=== PATIENT | female | born 1980 | race Caucasian/White ===

== ENCOUNTER 2019-07-03 12:43 | Outpatient (CLI) | payer BC ==
[2019-07-03 13:00] LABS: BASOPHILS % (AUTO) 0.8 %; EOSINOPHILS # (AUTO) 0.1 10^3/uL (0.0-0.7); EOSINOPHILS % (AUTO) 1.5 %; HGB - HEMOGLOBIN 13.9 g/dL (12.0-16.0); LYMPHOCYTES # (AUTO) 1.6 10^3/uL (1.5-3.5); LYMPHOCYTES % (AUTO) 42.3 %; MEAN CORPUSCULAR HEMOGLOBIN 31.9 pg (27.0-31.0); MEAN CORPUSCULAR HGB CONC 34.6 g/dL (32.0-36.0); MEAN CORPUSCULAR VOLUME 92.2 fL (81.0-99.0); MONOCYTES # (AUTO) 0.4 10^3/uL (0.0-1.0); NEUTROPHILS # (AUTO) 1.8 10^3/uL (1.5-6.6); NEUTROPHILS % (AUTO) 46.1 %; PLT - PLATELET COUNT 211 10^3/uL (130-450); RED BLOOD COUNT 4.36 10^6/uL (4.20-5.40); RED CELL DISTRIBUTION WIDTH 11.9 % (12.0-15.0); WHITE BLOOD COUNT 3.9 x10^3/uL (4.8-10.8)
[2019-07-03 14:02] LABS: THYROID STIMULATING HORMONE 3.97 uIU/mL (0.34-5.60)
[2019-07-03 14:05] LABS: FREE T4 (FREE THYROXINE) 0.83 ng/dL (0.58-1.64)
== END 2019-07-03 12:44 | disposition home or self-care (01) ==
LOC: LAB 12:43
PROVIDERS: ATTEND Family Medicine
DX: N92.1 Excessive and frequent menstruation with irregular cycle (principal)
CPT/HCPCS: 36415; 84439; 84443; 84481; 85025

== ENCOUNTER 2022-04-02 11:06 | Outpatient (CLI) | payer OTHER | END 2022-04-02 11:07 | disposition critical access hospital (66) | LOC: EMS 11:06 | DX: R55 Syncope and collapse (principal); R22.0 Localized swelling, mass and lump, head; W18.39XA Other fall on same level, initial encounter; Y92.512 Supermarket, store or market as the place of occurrence of the external cause; M25.522 Pain in left elbow | CPT/HCPCS: A0425; A0427 ==

== ENCOUNTER 2022-04-02 11:24 | Emergency (ER) | payer BC, OTHER ==
[2022-04-02] MEDS ORDERED: IBUPROFEN 800 MG TABLET PO STA (11:32)
--- NOTE | 2022-04-02 11:34 | ED Physician Documentation ---
PD HPI SYNCOPE - Stated complaint Stated Complaint: SEIZURE - Chief complaint Chief Complaint: Neuro - History obtained from History obtained from: Patient, EMS - Additional information Additional information: Previously healthy woman has been under a lot of stress lately. She was at the grocery store today in her usual state of health and hit her elbow hard and then passed out. She hit the back of her head on the floor on the way down. Sounds like she was not out for very long and there may have been some shaking but no clear seizure activity. Her elbow still hurts and now she has a significant headache from hitting her head with loss of consciousness and a fall greater than 3 feet. Review of Systems Ten Systems: 10 systems reviewed and negative Cardiac: denies: Chest pain / pressure, Palpitations Respiratory: denies: Dyspnea, Cough GI: denies: Abdominal Pain, Nausea, Vomiting Neurologic: reports: Headache, Head injury PD PAST MEDICAL HISTORY - Present Medications Home Medications: Ambulatory Orders Medication Instructions Recorded Confirmed No Known Home Medications 04/02/22 04/02/22 - Allergies Allergies/Adverse Reactions: Allergies Allergy/AdvReac Type Severity Reaction Status Date / Time amoxicillin Allergy Hives Verified 04/02/22 11:30 PD ED PE NORMAL - Vitals Vital signs reviewed: Yes - General General: Alert and oriented X 3 - HEENT HEENT: PERRL, EOMI, Other (Palpable hematoma on the left occiput) - Neck Neck: Supple, no meningeal sign, No bony TTP - Cardiac Cardiac: RRR, No murmur - Respiratory Respiratory: No respiratory distress, Clear bilaterally - Abdomen Abdomen: Normal bowel sounds, Soft, Non tender - Back Back: No CVA TTP, No spinal TTP - Derm Derm: Normal color, Warm and dry - Extremities Extremities: Other (L jay NTTP/FROM) - Neuro Neuro: Alert and oriented X 3, 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 No: Prolonged QT QRS: Normal Ischemia: Non specific changes. No: ST elevation c/w ischemia, ST depression - Labs Labs: Laboratory Tests 04/02/22 04/02/22 04/02/22 12:02 12:02 12:47 WBC 4.3 L RBC 4.57 Hgb 14.2 Hct 42.7 MCV 93.4 MCH 31.1 H MCHC 33.3 RDW 12.5 Plt Count 200 MPV 9.5 Neut # (Auto) 2.5 Lymph # (Auto) 1.4 L [place] # (Auto) 0.4 Eos # (Auto) 0.1 Baso # (Auto) 0.0 Absolute Nucleated RBC 0.00 Nucleated RBC % 0.0 Sodium 137 Potassium 4.0 Chloride 101 Carbon Dioxide 25 Anion Gap 11.0 BUN 14 Creatinine 0.9 Estimated GFR (MDRD) 69 L Glucose 138 H Calcium 9.2 Urine Color YELLOW Urine Clarity HAZY Urine pH 6.0 Ur Specific [place] 1.020 Urine Protein NEGATIVE Urine Glucose (UA) NEGATIVE Urine Ketones NEGATIVE Urine Occult Blood SMALL H Urine Nitrite NEGATIVE Urine Bilirubin NEGATIVE Urine Urobilinogen 0.2 (NORMAL) Ur Leukocyte Esterase NEGATIVE Ur Microscopic Review INDICATED Urine Culture Comments Not Reportable Urine HCG, Qual NEGATIVE - Rads (name of study) Ct Head Radiology: EMP read contemporaneously (Left parietal scalp hematoma without intracranial injury) PD MEDICAL DECISION MAKING - ED course ED course: 41-year-old woman with what sounds like vasovagal syncope related to painful stimulus, elbow injury. Departure - Departure Disposition: 01 Home, Self Care Clinical Impression: Vasovagal syncope Condition: Good Instructions: ED Syncope Vasovagal Comments: As discussed, the combination of a syncopal episode right after very painful stimulus and is most consistent with vasovagal syncope. Take it easy for the rest of the day and follow-up with your primary care physician next available appointment. Return for new or worsening symptoms.
[2022-04-02 12:06] LABS: BASOPHILS % (AUTO) 0.7 %; EOSINOPHILS # (AUTO) 0.1 10^3/uL (0.0-0.7); EOSINOPHILS % (AUTO) 1.4 %; HCT - HEMATOCRIT 42.7 % (37.0-47.0); HGB - HEMOGLOBIN 14.2 g/dL (12.0-16.0); LYMPHOCYTES # (AUTO) 1.4 10^3/uL (1.5-3.5); LYMPHOCYTES % (AUTO) 31.6 %; MEAN CORPUSCULAR HEMOGLOBIN 31.1 pg (27.0-31.0); MEAN CORPUSCULAR HGB CONC 33.3 g/dL (32.0-36.0); MEAN CORPUSCULAR VOLUME 93.4 fL (81.0-99.0); MEAN PLATELET VOLUME 9.5 fL (7.9-10.8); MONOCYTES # (AUTO) 0.4 10^3/uL (0.0-1.0); MONOCYTES % (AUTO) 8.7 %; NEUTROPHILS # (AUTO) 2.5 10^3/uL (1.5-6.6); NEUTROPHILS % (AUTO) 57.4 %; PLT - PLATELET COUNT 200 10^3/uL (130-450); RED BLOOD COUNT 4.57 10^6/uL (4.20-5.40); RED CELL DISTRIBUTION WIDTH 12.5 % (12.0-15.0); WHITE BLOOD COUNT 4.3 x10^3/uL (4.8-10.8)
[2022-04-02 12:11] VITALS: BP 162/104
[2022-04-02 12:16] LABS: CALCIUM 9.2 mg/dL (8.5-10.3); CREATININE 0.9 mg/dL (0.4-1.0)
--- NOTE | 2022-04-02 12:19 | CT Report ---
PROCEDURE: CT brain without contrast INDICATIONS: head injury TECHNIQUE: Noncontrast 4.5 mm thick angled axial sections acquired from the foramen magnum to the vertex. For r adiation dose reduction, the following was used: automated exposure control, adjustment of mA and/or kV according to patient size. COMPARISON: None. FINDINGS: Image quality: Excellent. CSF spaces: Basal cisterns are patent. No extra-axial fluid collections. Ventricles are normal in size and shape. Brain: No midline shift. No intracranial masses or hemorrhage. Cassidy-white matter interface is norm al. Skull and face: Calvarium and visualized facial bones are intact, without suspicious lesions. Left parietal scalp hematoma noted Sinuses: Visualized sinuses and mastoids are clear. IMPRESSION: Left parietal scalp hematoma without underlying skull fracture or intracranial hemorrhage Reviewed by: Kieran Ayala MD on 04/02/2022 11:18 AM CUATE Approved by: Kieran Ayala MD on 04/02/2022 11:18 AM CUATE Station ID: [id number]
[2022-04-02 13:12] LABS: BILIRUBIN,URINE NEGATIVE (NEGATIVE); GLUCOSE, URINE (UA) NEGATIVE (NEGATIVE); KETONES,URINE (UA) NEGATIVE (NEGATIVE); LEUKOCYTE ESTERASE, URINE NEGATIVE (NEGATIVE); NITRITE,URINE NEGATIVE (NEGATIVE); OCCULT BLOOD,URINE SMALL (NEGATIVE); PROTEIN,URINE NEGATIVE (NEGATIVE); UROBILINOGEN,URINE 0.2 (NORMAL) E.U./dL (NORMAL)
[2022-04-02 13:17] LABS: CLARITY,URINE HAZY (CLEAR); HCG UR QUAL NEGATIVE
[2022-04-02 13:23] LABS: BACTERIA,URINE Many /HPF (None Seen); RBC,URINE 0-5 /HPF (0-5); SQUAMOUS EPITHELIAL CELL,UR MANY Squamous (<= Few); WBC,URINE 0-3 /HPF (0-5)
[2022-04-02 13:24] LABS: MUCUS,URINE Marked Strands
== END 2022-04-02 13:33 | disposition home or self-care (01) ==
LOC: EDUNIT# → ED 11:24
DX: R55 Syncope and collapse (principal)
CPT/HCPCS: 36415; 70450; 80048; 81001; 81025; 85025; 93005; 99284; A9270; 81003; 87086

== ENCOUNTER 2022-04-25 08:00 | Outpatient (CLI) | payer OTHER ==
[2022-04-25 23:11] LABS: BACTERIAL VAGINOSIS DNA NEGATIVE (NEGATIVE); CANDIDA GLABRATA DNA NEGATIVE (NEGATIVE); CANDIDA GROUP DNA NEGATIVE (NEGATIVE); CANDIDA KRUSEI DNA NEGATIVE (NEGATIVE); TRICHOMONAS VAGINALIS DNA NEGATIVE (NEGATIVE)
[2022-04-26 00:07] LABS: CHLAMYDIA TRACHOMATIS DNA NEGATIVE (NEGATIVE); NEISSERIA GONORRHOEAE DNA NEGATIVE (NEGATIVE)
== END 2022-04-25 23:59 | disposition home or self-care (01) ==
LOC: LAB.N 08:00
PROVIDERS: ATTEND Physician Assistant Medical
DX: N76.0 Acute vaginitis (principal)
CPT/HCPCS: 81514; 87491; 87591; 87661

== ENCOUNTER 2022-06-13 09:19 | Outpatient (CLI) | payer OTHER | END 2022-06-13 09:20 | disposition home or self-care (01) | LOC: DI 09:19 | PROVIDERS: ATTEND Physician Assistant | DX: R01.1 Cardiac murmur, unspecified (principal); R55 Syncope and collapse | CPT/HCPCS: 93306 ==

== ENCOUNTER 2023-05-26 10:02 | Emergency (ER) | payer OTHER ==
--- NOTE | 2023-05-26 10:24 | ED Physician Documentation ---
PD HPI LOWER EXT INJURY - Stated complaint Stated Complaint: LT ARM/LEG PX - Chief complaint Chief Complaint: General - History obtained from History obtained from: Patient - History of Present Illness PD HPI LOW EXT INJURY LOCATION: Left, Calf, Other (has had some pain left upper calf without edema nor swelling. Had some left biceps area pain as welll on ROM for 2-3 days. Had been working out upper body and thinks might have strained it.) Type of injury: No: Fall, Twist Timing - onset: How many days ago (2) Timing - details: Gradual onset, Still present, Waxing and waning Worsened by: Moving. No: Palpating Associated symptoms: No: Weakness, Numbness, Swelling Similar symptoms before: Has not had sx before Review of Systems Constitutional: denies: Fever, Chills Nose: denies: Rhinorrhea / runny nose, Congestion Throat: denies: Sore throat Respiratory: denies: Cough GI: reports: Nausea, Vomiting (last evening). denies: Abdominal Pain, Constipation, Diarrhea Skin: denies: Rash, Lesions PD PAST MEDICAL HISTORY - Past Medical History Cardiovascular: None Respiratory: None Neuro: None Endocrine/Autoimmune: None GI: None CART DRIVER: None : None HEENT: None Psych: None Musculoskeletal: None Derm: None - Past Surgical History Past Surgical History: No - Present Medications Home Medications: Ambulatory Orders Medication Instructions Recorded Confirmed No Known Home Medications 04/02/22 05/26/23 - Allergies Allergies/Adverse Reactions: Allergies Allergy/AdvReac Type Severity Reaction Status Date / Time amoxicillin Allergy Hives Verified 05/26/23 10:15 - Social History Does the pt smoke?: No Smoking Status: Never smoker Does the pt drink ETOH?: Yes Does the pt have substance abuse?: No - Immunizations Immunizations are current?: Yes PD ED PE NORMAL - Vitals Vital signs reviewed: Yes - General General: Alert and oriented X 3, No acute distress, Well developed/nourished - Neck Neck: Supple, no meningeal sign, No adenopathy - Cardiac Cardiac: RRR, No murmur - Respiratory Respiratory: No respiratory distress, Clear bilaterally - Abdomen Abdomen: Soft, Non tender - Derm Derm: Normal color, Warm and dry - Extremities Extremities: Normal ROM s pain, No edema, Other (minimal calf tenderness medial upper without rash nor sores. ) - Neuro Neuro: Alert and oriented X 3, No motor deficit, No sensory deficit, Other (kleft upper arm with some pain on flexion against resistance. No noted skin sores. 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 ) Results - Vitals Vitals: Oxygen O2 Source Room air - Labs Labs: Laboratory Tests 05/26/23 05/26/23 05/26/23 11:05 11:05 11:05 WBC 4.4 L RBC 4.48 Hgb 14.3 Hct 42.0 MCV 93.8 MCH 31.9 H MCHC 34.0 RDW 12.0 Plt Count 191 MPV 9.3 Neut # (Auto) 2.8 Lymph # (Auto) 1.1 L [place] # (Auto) 0.4 Eos # (Auto) 0.1 Baso # (Auto) 0.0 Absolute Nucleated RBC 0.00 Nucleated RBC % 0.0 Sodium 137 Potassium 4.2 Chloride 104 Carbon Dioxide 26 Anion Gap 7.0 BUN 14 Creatinine 0.9 Estimated GFR (MDRD) 69 L Glucose 100 Calcium 9.3 Magnesium 2.3 Total Bilirubin 0.8 AST 20 ALT 19 Alkaline Phosphatase 28 L Total Protein 7.9 Albumin 4.3 Globulin 3.6 Albumin/Globulin Ratio 1.2 Lipase 39 TSH 3.98 - Rads (name of study) duplex U/S Relevant Findings:: Prelim report reviewed, Other (US tech = no DVT. ) PD Medical Decision Making - ED course Complexity details: considered differential (has some left calf pain but no edema. Did have recent plane travel. Also with left upper arm pain on ROM which seems muscular. had some epigastric to chest pain with nausea and vomiting last evening after greasy meal, but no pain nor nausea today. Her main concern is DVT. ), d/w patient ED course: her main concern is DVT with some calf pain and recent travel. She has history of what sounds like superficial phlebitis in the past and not DVT, but she is still concerned. Her chest pain last evening was with/following greasy food and several episodes of nausea/vomiting. No chest pain today. US of the left calf is negative. Departure - Departure Disposition: 01 Home, Self Care Clinical Impression: Chest discomfort, Left arm pain, Biceps muscle strain, Pain of left calf, Recent travel on aircraft Condition: Stable Record reviewed to determine appropriate education?: Yes Instructions: ED Strain Muscle Ext Follow-Up: Carine Connelly PA [Primary Care Provider] - Comments: The chest pain you had last night presumably does relate to the food you ID and associated with the nausea and vomiting. Your blood test today do not show any signs of inflammation of the pancreas or liver. You are not tender in the abdomen to suggest gallbladder. I would presume the food intolerance would be nonrepetitive. Regarding your arm and leg, I presume they are muscular cause. Your ultrasound of the left leg does not show any blood clots. Other blood tests done today showed normal blood count and white count as well as electrolytes kidney function and blood sugar. No obvious metabolic cause for weakness or numbness. I presume is a local effect then with some muscular strain or irritation. Activity as tolerated. Avoid upper body workout for a week or so and see how your arm feels. Discharge Date/Time: 05/26/23 12:59
[2023-05-26 11:13] LABS: BASOPHILS % (AUTO) 0.5 %; EOSINOPHILS # (AUTO) 0.1 10^3/uL (0.0-0.7); EOSINOPHILS % (AUTO) 1.1 %; HGB - HEMOGLOBIN 14.3 g/dL (12.0-16.0); LYMPHOCYTES # (AUTO) 1.1 10^3/uL (1.5-3.5); LYMPHOCYTES % (AUTO) 25.7 %; MEAN CORPUSCULAR HEMOGLOBIN 31.9 pg (27.0-31.0); MEAN CORPUSCULAR VOLUME 93.8 fL (81.0-99.0); MEAN PLATELET VOLUME 9.3 fL (7.9-10.8); MONOCYTES # (AUTO) 0.4 10^3/uL (0.0-1.0); MONOCYTES % (AUTO) 8.7 %; NEUTROPHILS # (AUTO) 2.8 10^3/uL (1.5-6.6); NEUTROPHILS % (AUTO) 63.8 %; PLT - PLATELET COUNT 191 10^3/uL (130-450); RED BLOOD COUNT 4.48 10^6/uL (4.20-5.40); WHITE BLOOD COUNT 4.4 x10^3/uL (4.8-10.8)
[2023-05-26 11:22] LABS: ALBUMIN 4.3 g/dL (3.2-5.5); ALBUMIN/GLOBULIN RATIO 1.2 (1.0-2.2); BILIRUBIN,TOTAL 0.8 mg/dL (0.2-1.0); CALCIUM 9.3 mg/dL (8.5-10.3); CREATININE 0.9 mg/dL (0.4-1.0); MAGNESIUM 2.3 mg/dL (1.7-2.8); POTASSIUM 4.2 mmol/L (3.5-5.0); TOTAL PROTEIN 7.9 g/dL (6.7-8.2)
--- NOTE | 2023-05-26 12:22 | Ultrasound Report ---
PROCEDURE: Duplex Ext Veins Left INDICATIONS: left lower leg discomfort; recent travel. TECHNIQUE: Real-time imaging, as well as color and pulse Doppler interrogation, were performed of the lower extr emity deep veins from the inguinal ligament to the popliteal fossa. COMPARISON: None. FINDINGS: The deep veins are normally compressible, and free of intraluminal thrombus. Color and pu lse Doppler demonstrate normal phasic intraluminal flow. There is normal augmentation response to di stal compression maneuver. IMPRESSION: No deep venous thrombosis. Reviewed by: Jackie Negron MD on 05/26/2023 12:21 PM PDT Approved by: Jackie Negron MD on 05/26/2023 12:21 PM PDT Station ID: [id number]
[2023-05-26 13:06] VITALS: BP 128/71
== END 2023-05-26 12:59 | disposition home or self-care (01) ==
LOC: ED 10:02
DX: M79.662 Pain in left lower leg (principal); R07.89 Other chest pain; S46.212A Strain of muscle, fascia and tendon of other parts of biceps, left arm, initial encounter; X58.XXXA Exposure to other specified factors, initial encounter
CPT/HCPCS: 36415; 80053; 83690; 83735; 84443; 85025; 99283; 99284

== ENCOUNTER 2024-07-05 21:01 | Outpatient (CLI) | payer OTHER ==
--- NOTE | 2024-07-07 22:58 | Ultrasound Report ---
PROCEDURE: Pelvic Complete INDICATIONS: PELVIC PAIN TECHNIQUE: Real-time transabdominal scanning was performed of the pelvic organs, with image documentation. COMPARISON: None. FINDINGS: Uterus: Uterus is anteverted and normal in size at 8.8 x 5.8 x 4.8 cm. The myometrium is homogeneou s. The endometrium measures 7 mm in combined thickness. IUD centered in the individual canal. Ovaries: The right ovary measures 3.7 x 3.4 x 2.4 cm, with a calculated ovarian volume of 16 cc. Th e left ovary measures 4.8 x 4.3 x 2.6 cm, with a calculated ovarian volume of 38 cc. The ovaries hav e a normal sonographic appearance. Less than 12 follicles can be seen in each ovary. No adnexal mas ses are seen. Small anechoic cysts bilaterally. Largest on the left measuring 3.1 cm. Other: No free pelvic fluid. IMPRESSION: 1. IUD centered in the endometrium. Endometrium measures 7 mm. 2. Small simple benign ovarian cysts. Largest on the left measures 3.1 cm. Reviewed by: Domenico Palumbo MD on 07/07/2024 10:57 PM PDT Approved by: Domenico Palumbo MD on 07/07/2024 10:57 PM PDT Station ID: [id number]
== END 2024-07-05 21:02 | disposition home or self-care (01) ==
LOC: DI 21:01
PROVIDERS: ATTEND Physician Assistant
DX: N83.202 Unspecified ovarian cyst, left side (principal); N83.201 Unspecified ovarian cyst, right side; Z30.431 Encounter for routine checking of intrauterine contraceptive device